=== PATIENT | male | born 1960 | race Caucasian/White ===

== ENCOUNTER → 2020-08-18 | Outpatient (CLI) | payer OTHER ==
[~2020-08-18] MED LIST: AMITRIPTYLINE H50 MG PO; CETIRIZINE HCL10 MG PO; CYCLOBENZAPRINE10 MG PO; ECOTRIN81 MG PO; ELIQUIS5 MG PO; FAMOTIDINE20 MG PO; FARXIGA10 MG PO; FENOFIBRATE145 MG PO; HYDROCODON-ACE1 EAC6 PO; ISOSORBIDE MONO60 MG PO; KETOROLAC TROME10 MG PO; LANTUS100 UNIT/1 SQ; LIDOCAINE PAIN1 EACH TD; LISINOPRIL5 MG PO; METFORMIN HCL1000 MG PO; NEUPRO1 EAC1 TD; NEURONTIN600 MG PO; PROTONIX40 MG PO; ROPINIROLE HCL1 MG PO; SIMVASTATIN80 MG PO; TAMSULOSIN HCL0.4 MG PO; VENTOLIN HFA 66.7 GM INH; VITAMIN D PO; ZOFRAN4 MG PO
== END ==
LOC: EXRD 08-15 11:00
DX: Z01.818 Encounter for other preprocedural examination (principal)
CPT/HCPCS: 93926

== ENCOUNTER → 2020-10-11 | Outpatient (CLI) | payer OTHER | LOC: OPSV2 07:53 | DX: Z01.812 Encounter for preprocedural laboratory examination (principal); M79.2 Neuralgia and neuritis, unspecified ==

== ENCOUNTER → 2020-10-12 | Day surgery (SDC) | payer OTHER ==
[~2020-10-12] VITALS: Ht 177.8 cm; Wt 111.6 kg
== END | disposition home or self-care (01) ==
LOC: OR 08:46
DX: M19.172 Post-traumatic osteoarthritis, left ankle and foot (principal); M79.2 Neuralgia and neuritis, unspecified; G89.29 Other chronic pain; I11.9 Hypertensive heart disease without heart failure; K21.9 Gastro-esophageal reflux disease without esophagitis; E78.5 Hyperlipidemia, unspecified; I25.10 Atherosclerotic heart disease of native coronary artery without angina pectoris; E11.9 Type 2 diabetes mellitus without complications; I25.2 Old myocardial infarction; G47.30 Sleep apnea, unspecified; F17.210 Nicotine dependence, cigarettes, uncomplicated; Z99.89 Dependence on other enabling machines and devices; Z95.5 Presence of coronary angioplasty implant and graft; Z79.82 Long term (current) use of aspirin; Z79.01 Long term (current) use of anticoagulants; Z79.84 Long term (current) use of oral hypoglycemic drugs; Z79.899 Other long term (current) drug therapy
CPT/HCPCS: 73630; 76000; 82962; C1713; C1762; C1769; J0690; J1885; J2001; J2250; J2405; J2704; J2795; J3010; J3370; J7030; J7120; Q4133

== ENCOUNTER → 2020-10-20 | Outpatient (CLI) | payer OTHER | LOC: KOH-I 09:44 | DX: Z47.89 Encounter for other orthopedic aftercare (principal); Z98.1 Arthrodesis status | CPT/HCPCS: 73630 ==

== ENCOUNTER → 2020-11-03 | Outpatient (CLI) | payer OTHER | LOC: KOH-I 09:40 | DX: Z47.89 Encounter for other orthopedic aftercare (principal); S92.312A Displaced fracture of first metatarsal bone, left foot, initial encounter for closed fracture; Z98.1 Arthrodesis status | CPT/HCPCS: 73630 ==

== ENCOUNTER → 2020-11-17 | Outpatient (CLI) | payer OTHER | LOC: KOH-I 09:03 | DX: Q70.22 Fused toes, left foot (principal); M19.072 Primary osteoarthritis, left ankle and foot | CPT/HCPCS: 73630 ==

== ENCOUNTER → 2020-12-12 | Outpatient (CLI) | payer OTHER | LOC: KOH-I 11:04 | DX: Z47.89 Encounter for other orthopedic aftercare (principal); M79.672 Pain in left foot; Z98.1 Arthrodesis status | CPT/HCPCS: 73630 ==

== ENCOUNTER → 2021-01-05 | Outpatient (CLI) | payer OTHER | LOC: KOH-I 10:56 | DX: M79.672 Pain in left foot (principal) | CPT/HCPCS: 73630 ==

== ENCOUNTER → 2021-02-20 | Outpatient (CLI) | payer OTHER | LOC: KOH-I 15:09 | DX: M79.672 Pain in left foot (principal) | CPT/HCPCS: 73630 ==

== ENCOUNTER → 2021-03-28 | Outpatient (CLI) | payer OTHER | LOC: KOH-I 15:03 | DX: S92.402A Displaced unspecified fracture of left great toe, initial encounter for closed fracture (principal); M19.072 Primary osteoarthritis, left ankle and foot | CPT/HCPCS: 73660 ==

== ENCOUNTER → 2021-07-18 | Outpatient (CLI) | payer OTHER | LOC: KOH-I 15:12 | DX: M79.671 Pain in right foot (principal) | CPT/HCPCS: 73630 ==

== ENCOUNTER → 2021-07-26 | Outpatient (CLI) | payer OTHER | LOC: KOH-I 13:16 | DX: S93.325A Dislocation of tarsometatarsal joint of left foot, initial encounter (principal); S92.312D Displaced fracture of first metatarsal bone, left foot, subsequent encounter for fracture with routine healing | CPT/HCPCS: 73700 ==